=== PATIENT | female | born 1980 | race Caucasian/White ===

== ENCOUNTER 2021-03-16 09:28 | Emergency (ER) | payer MEDICAID, SELFPAY ==
[~2021-03-16] VITALS: Ht 162.6 cm; Wt 81.6 kg
--- NOTE | 2021-03-16 09:28 | NUR ---
TRIAGED IN OUTSIDE TRIAGE TENT. AWAITING ER BED
[2021-03-16 09:30] VITALS: BP_SYST 134
--- NOTE | 2021-03-16 09:47 | NUR ---
DR SWARTZ OUT TO TRIAGE TENT FOR EVALUATION
[2021-03-16] MEDS ORDERED: PRED20TA PO (10:19)
--- NOTE | 2021-03-16 10:40 | NUR ---
Patient given written and verbal discharge instructions and verbalizes understanding. ER MD discussed with patient the results and treatment provided. Patient in stable condition. ID arm band removed Rx of DECADRON given. Patient educated on pain management and to follow up with PMD. Pain Scale 0/10. Opportunity for questions provided and answered. Medication side effect fact sheet provided.
== END 2021-03-16 10:40 | disposition home or self-care (01) ==
LOC: SED 09:28
DX: L30.9 Dermatitis, unspecified (principal); Z79.899 Other long term (current) drug therapy
CPT/HCPCS: 99283